=== PATIENT | female | born 1995 | race Caucasian/White ===

== ENCOUNTER → 2016-08-23 | Outpatient (CLI) | payer BC ==
[~2016-08-23] MED LIST: ADVAIR INH; CREON DR 24,001 EACH PO; DAILY MULTIPLE1 EAC1 PO; LEXAPRO10 MG PO; MONONESSA 28 T1 EACH PO; PROVENTIL OR V6.7 GM INH; PULMOZYME1 AMP INH; TYLENOL WITH C1 EACH PO
== END | disposition disaster alternative care site (69) ==
LOC: GRAD 13:50
DX: J33.8 Other polyp of sinus (principal); J34.2 Deviated nasal septum; J34.89 Other specified disorders of nose and nasal sinuses; Z98.890 Other specified postprocedural states

== ENCOUNTER → 2016-10-10 | Day surgery (SDC) | payer BC ==
[~2016-10-10] VITALS: Ht 157.5 cm; Wt 60.8 kg
--- NOTE | ~2016-10-10 | OR ---
PATIENT'S NAME: GEORGE SOLIS [facility] AGE: 21 Y [address] ROOM: [place] [address] LOCATION: [facility] [place] ADMIT DATE: 10/10/2016 OR/Procedure Report DISCHARGE DATE: FAMILY PHYSICIAN: PHYSICIAN, NO ATTENDING PHYSICIAN: Raheem Kearns V SURGEON: Raheem Kearns MD POLICY SERVICES REPRESENTATIVE: DATE OF PROCEDURE: 10/10/2016 PREOPERATIVE DIAGNOSES: 1. Chronic pansinusitis. 2. Nasal obstruction secondary to nasal septal deviation. 3. Cystic fibrosis. POSTOPERATIVE DIAGNOSES: 1. Chronic pansinusitis. 2. Nasal obstruction secondary to nasal septal deviation. 3. Cystic fibrosis. OPERATION/PROCEDURE: 1. Bilateral total endoscopic ethmoidectomy, middle meatal antrostomy with maxillary sinus cultures. 2. Bilateral endoscopic frontal recess approach. 3. Bilateral endoscopic sphenoidotomy. 4. Placement of bilateral Propel implants. 5. Nasal septoplasty. 6. Stealth image guidance. ANESTHESIA: General endotracheal anesthesia. ESTIMATED BLOOD LOSS: Minimal. COMPLICATIONS: None. FINDINGS: Bilateral severe maxillary sinusitis with inspissated mucus. Gross purulence. Aerobic and anaerobic cultures obtained. Severe right to left nasal septal deviation obstructing the left nasal vestibule. DESCRIPTION OF PROCEDURE: The patient was taken to the operating room, laid in supine position with general endotracheal anesthesia. The table was rotated 180 degrees. Head was placed in the upright position. Stealth image guidance reference pad was placed on the forehead. The Stealth image guidance was calibrated. Cocaine soaked nasal pledgets were placed within the nasal vestibule. The patient was then prepped and draped in usual sterile fashion. Cocaine-soaked pledgets removed from the right nasal vestibule. A 0-degree PATIENT'S NAME: GEORGE SOLIS [facility] AGE: 21 Y [address] ROOM: [place], [place] [address] LOCATION: [facility] [place] ADMIT DATE: 10/10/2016 OR/Procedure Report DISCHARGE DATE: FAMILY PHYSICIAN: PHYSICIAN, NO ATTENDING PHYSICIAN: Raheem Kearns V rigid Meeks telescope was inserted within the nasal vestibule for visualization of the lateral nasal wall. The patient had a large anterior agger nasi as all middle turbinate was reflected medially. The uncinate process agger nasi was infiltrated with 1% lidocaine with epinephrine solution. Infundibulotomy incision was performed with a sickle knife, carried down into the middle meatus. The uncinate process agger nasi anterior ethmoid cell were removed. The lamina papyracea was skeletonized using a 4.0 microdebrider blade with large amount of inflamed mucosa. Anterior ethmoidectomy was then performed posteriorly down to the posterior attachment of the middle turbinate; grand lamella was then fractured open. The posterior ethmoidectomy was performed. Skull base was identified with Stealth image guidance. Dissection was then performed from posterior to anterior to the level of the frontal recess. Frontal recess was opened using an upbiting forceps. There was gross purulence from the frontal sinus. This was irrigated and suctioned. Anterior wall of the sphenoid sinus was identified. This was opened and a large sphenoidotomy was performed. Maxillary antrostomy was performed using a microdebrider blade. There was large amount of thick inspissated mucus. Aerobic and anaerobic cultures, fungal AFB were performed. A large middle meatal antrostomy was performed. Maxillary sinus was irrigated with copious amounts of saline solution. Maxillary sinus mucosa was noted to be significantly inflamed. Contents were suctioned and irrigated clean. Hemostasis was noted to be adequate. Cocaine-soaked pledgets were placed within the anterior ethmoid cavity. Attention was then turned to the left. The patient was noted to have a severe right to left septal deviation. Septum was infiltrated with 1% lidocaine with epinephrine solution. Left kristen- transfixed incision performed using a #15 blade. Mucoperichondrial flap was elevated posteriorly to the bony cartilage junction. Bony cartilage junction was divided using [place] elevator and mucoperiosteal flap was elevated posteriorly. The quadrilateral cartilage from the maxillary crest. The patient was noted to have a severe right to left inferior nasal septal spur. A portion of the quadrilateral cartilage, a large inferior septal spur removed using a straight biting forceps. Portion of the perpendicular plate of the ethmoid and vomer removed using duckbill straight biting forceps. Mucoperichondrial/periosteal flaps were placed back in apposition. Septum was noted to be midline. The hemitransfixion incision closed using interrupted 4- 0 chromic suture. Mucoperichondrial flaps apposed using a 4-0 plain gut suture in a circular whipping stitch fashion. Inferior turbinate was outfractured. The middle turbinate was visualized and noted to be thin and small. A total ethmoidectomy, maxillary antrostomy, sphenoidotomy, frontal recess was approached, was performed on the left as well as on the right. Again hemostasis was adequate. Propel implant was then placed within the left ethmoid cavity. The ethmoid cavity was filled with Bactroban ointment. Cocaine soaked pledgets were removed from the right. Similar procedure was performed on the right. Bactroban coated nasal tampons were placed, right and PATIENT'S NAME: GEORGE SOLIS [facility] AGE: 21 Y [address] ROOM: [place] [address] LOCATION: [facility] [place] ADMIT DATE: 10/10/2016 OR/Procedure Report DISCHARGE DATE: FAMILY PHYSICIAN: PHYSICIAN, RUPERTO ATTENDING PHYSICIAN: Raheem Kearns respectively. The patient was aroused, extubated, and discharged from the operating room to recovery room in satisfactory condition. MD ALEXYS SONG/elidal /[id number] d: 10/10/16 1356 t: 10/24/16 1308, OPERATIVE SUMMARY
== END ==
LOC: GPOC 10-03 13:00 → GSDC 05:47
PROC: 09BV4ZZ Excision of Left Ethmoid Sinus, Percutaneous Endoscopic Approach (ICD-10-PCS; principal; 2016-10-10)
PROC: 09BU4ZZ Excision of Right Ethmoid Sinus, Percutaneous Endoscopic Approach (ICD-10-PCS; 2016-10-10)
PROC: 099R4ZZ Drainage of Left Maxillary Sinus, Percutaneous Endoscopic Approach (ICD-10-PCS; 2016-10-10)
PROC: 099Q4ZZ Drainage of Right Maxillary Sinus, Percutaneous Endoscopic Approach (ICD-10-PCS; 2016-10-10)
PROC: 09CX4ZZ Extirpation of Matter from Left Sphenoid Sinus, Percutaneous Endoscopic Approach (ICD-10-PCS; 2016-10-10)
PROC: 09CW4ZZ Extirpation of Matter from Right Sphenoid Sinus, Percutaneous Endoscopic Approach (ICD-10-PCS; 2016-10-10)
PROC: 09BM0ZZ Excision of Nasal Septum, Open Approach (ICD-10-PCS; 2016-10-10)
DX: J32.4 Chronic pansinusitis (principal); J34.2 Deviated nasal septum; E84.9 Cystic fibrosis, unspecified; F41.9 Anxiety disorder, unspecified; F32.9 Major depressive disorder, single episode, unspecified; Z79.899 Other long term (current) drug therapy
CPT/HCPCS: A9270; J1100; J2001; J2405; J3010; J7120